=== PATIENT | female | born 1955 | race Two or more races ===

== ENCOUNTER 2019-10-18 10:30 | Outpatient (CLI) | payer OTHER | END 2019-10-18 10:33 | disposition home or self-care (01) | LOC: RAD 10:30 | DX: S62.325A Displaced fracture of shaft of fourth metacarpal bone, left hand, initial encounter for closed fracture (principal); S66.911A Strain of unspecified muscle, fascia and tendon at wrist and hand level, right hand, initial encounter ==

== ENCOUNTER 2021-05-06 11:53 | Outpatient (CLI) | payer OTHER | END 2021-05-06 11:55 | disposition home or self-care (01) | LOC: RAD 11:53 | PROVIDERS: ATTEND Chiropractor | DX: M50.31 Other cervical disc degeneration, high cervical region (principal); M46.06 Spinal enthesopathy, lumbar region; M25.112 Fistula, left shoulder; M75.122 Complete rotator cuff tear or rupture of left shoulder, not specified as traumatic | CPT/HCPCS: 73218 ==

== ENCOUNTER 2021-06-13 11:50 | Outpatient (CLI) | payer OTHER | END 2021-06-13 12:04 | disposition home or self-care (01) | LOC: TOM 11:50 | PROVIDERS: ATTEND Specialist | DX: R10.84 Generalized abdominal pain (principal); R31.0 Gross hematuria ==

== ENCOUNTER 2021-09-13 08:00 | Outpatient (CLI) | payer OTHER | END 2021-09-13 08:30 | disposition home or self-care (01) | LOC: PPH VACUNA 08:00 | PROVIDERS: ATTEND Emergency Medicine Pediatric Emergency Medicine | DX: Z23 Encounter for immunization (principal) ==

== ENCOUNTER 2023-08-05 11:44 | Outpatient (CLI) | payer OTHER | END 2023-08-05 11:53 | disposition home or self-care (01) | LOC: RAD 11:44 | PROVIDERS: ATTEND Internal Medicine Rheumatology | DX: M46.02 Spinal enthesopathy, cervical region (principal) ==